=== PATIENT | female | born 1960 | race Caucasian/White ===

== ENCOUNTER 2016-09-10 17:54 | Emergency (ER) | payer MEDICARE, OTHER | END 2016-09-10 18:22 | disposition home or self-care (01) | LOC: ER 17:54 | DX: H60.92 Unspecified otitis externa, left ear (principal); F17.210 Nicotine dependence, cigarettes, uncomplicated; Z88.0 Allergy status to penicillin; Z88.6 Allergy status to analgesic agent ==